=== PATIENT | male | born 1955 | race Caucasian/White ===

== ENCOUNTER 2019-02-03 10:02 | Day surgery (SDC) | payer OTHER ==
[~2019-02-03 10:02] MED LIST: Bupivacaine 0.5%/EPINEPHrine 1:200,000 50 ML MDV ONE; Hydrogen Peroxide 3% Top Soln 240 ML Bottle ONE
[2019-02-03] MEDS ORDERED: Dextrose 5%-Lactated Ringers 1,000 ML IV SCH (10:30)
[2019-02-03] MEDS ORDERED: cefOXitin 2 GM in Sodium Chloride 0.9% 50 ML IV ONE (10:30)
[2019-02-03] MEDS ORDERED: Methylene Blue 50 MG/10 ML Ampule INJECT ONE (11:00)
[2019-02-03] MEDS ORDERED: Propofol 200 MG/20 ML SDV ONE ×2 (11:30→12:35)
[2019-02-03] MEDS ORDERED: Succinylcholine 200 MG/10 ML MDV ONE (11:30)
[2019-02-03] MEDS ORDERED: Dexamethasone 4 MG/ML SDV ONE (11:30)
[2019-02-03] MEDS ORDERED: Neostigmine Methylsulfate 1 MG/ML 5 ML Syringe ONE (11:30)
[2019-02-03] MEDS ORDERED: Glycopyrrolate 0.2 MG/ML 5 ML MDV ONE (11:30)
[2019-02-03] MEDS ORDERED: fentaNYL 250 MCG/5 ML SDV ONE (11:30)
[2019-02-03] MEDS ORDERED: Rocuronium 50 MG/5 ML Vial ONE (11:30)
[2019-02-03] MEDS ORDERED: Ondansetron 4 MG/2 ML SDV ONE (11:30)
[2019-02-03] MEDS ORDERED: Sodium Phosphate,Monobasic/Sodium Phosphate,Dibasic Enema 133 ML Bottle RECTAL ONE (11:34)
[2019-02-03] MEDS ORDERED: Hydrogen Peroxide 3% Top Soln 240 ML Bottle ONE (13:05)
--- NOTE | 2019-02-03 14:57 | OR ---
DATE OF PROCEDURE: 02/03/2019 PREOPERATIVE DIAGNOSIS: [id number]. POSTOPERATIVE DIAGNOSIS: [id number]. PROCEDURE: Anal fistulectomy. SURGEON: Dalton Garcia MD ANESTHESIA: General endotracheal. INDICATION: This 63-year-old white male noted drainage from an opening near his anus in September of this year. It has not improved and continues to drain a thin fluid. He has to wear a pad to collect this fluid. He was referred for evaluation and treatment of a [id number]. He denies a history of a perirectal abscess. On exam, he does have an opening with a drop of fluid on it right at the edge of his anoderm. This would be at the 1 o'clock position with 12 o'clock being posterior. I counseled him for a fistulectomy, including risks and alternatives, and he gave his informed consent to proceed. DESCRIPTION OF PROCEDURE: After adequate general endotracheal anesthesia was obtained, the patient was placed in luke-knife position. His anal and perianal areas were prepped and draped in the usual sterile fashion. Time-out was held. The fistulous opening was cannulated with a catheter and methylene blue with peroxide was injected into the opening. We noted it to come out through one of the crypts in the anus with the anoscope in position. We were then able to pass a lacrimal probe easily between these 2 areas. The overlying skin and subcutaneous tissue were then divided with electrocautery. The fistulous tract was curetted. We did not go into the muscle. All looked well. A sterile dressing was applied. He was placed supine. The anesthesia was reversed. He was extubated and brought to recovery room in good condition. Dalton Garcia MD /[id number]
== END 2019-02-03 15:28 | disposition home or self-care (01) ==
LOC: JP.SDS 10:02
PROVIDERS: ATTEND Surgery
DX: K60.3 Anal fistula (principal); K21.9 Gastro-esophageal reflux disease without esophagitis; I10 Essential (primary) hypertension; I83.93 Asymptomatic varicose veins of bilateral lower extremities; E11.9 Type 2 diabetes mellitus without complications; E78.5 Hyperlipidemia, unspecified; E66.9 Obesity, unspecified; Z88.5 Allergy status to narcotic agent; Z91.013 Allergy to seafood; Z79.51 Long term (current) use of inhaled steroids; Z79.82 Long term (current) use of aspirin; Z79.01 Long term (current) use of anticoagulants; Z79.899 Other long term (current) drug therapy; Z68.41 Body mass index [BMI] 40.0-44.9, adult
CPT/HCPCS: 46270; A9270; J0330; J0694; J1100; J2405; J2704; J3010; J7042; J7050; Q9968; J2710; J3490

== ENCOUNTER 2020-03-03 14:24 | Emergency (ER) | payer MEDICARE, OTHER ==
--- NOTE | 2020-03-03 15:55 | EDM.PDOC ---
ED HPI GENERAL MEDICAL PROBLEM - General Chief Complaint: Cardiovascular Problem Stated Complaint: LOW BP Time Seen by Provider: 03/03/20 15:38 Source of Information: Reports: Patient, Family, RN Notes Reviewed History Limitations: Reports: No Limitations - History of Present Illness INITIAL COMMENTS - FREE TEXT/NARRATIVE: Bari reports complaints of dizziness today and almost passing out while working in his garage. he states he went to stand up and became very dizzy and almost passed out. He checked his blood pressure and noted that his heart rate was 44 BPM with blood pressure of 104/50s. Bari has been working on his diet and weight loss to become healthier. He denies fever, chills, nausea, vomiting, diarrhea or other concerns. - Related Data Allergies Allergy/AdvReac Type Severity Reaction Status Date / Time hydrocodone Allergy Severe Anaphylactic Verified 03/03/20 15:05 Shock niacin Allergy Severe Anaphylactic Verified 03/03/20 15:05 Shock shellfish derived Allergy Itching Verified 03/03/20 15:05 hydromorphone [From Dilaudid] AdvReac Nausea Verified 03/03/20 15:05 oxycodone [From Percocet] AdvReac Nausea and Verified 03/03/20 15:05 Vomiting Home Meds: Home Meds Aspirin [Aspirin EC] 325 mg PO DAILY 01/18/19 [History] Fish Oil/DHA/EPA [Fish Oil 1,200 MG] 1 each PO DAILY 01/18/19 [History] Fluticasone Propionate [Flonase] 2 spray IH DAILY 01/18/19 [History] Lisinopril 40 mg PO DAILY 01/18/19 [History] Loratadine [Claritin] 10 mg PO DAILY 01/18/19 [History] Multivitamin [Daily Multiple Vitamin] 1 each PO DAILY 01/18/19 [History] Omeprazole 40 mg PO DAILY 01/18/19 [History] Spironolactone [Aldactone] 25 mg PO DAILY 01/18/19 [History] Tamsulosin HCl 0.4 mg PO DAILY 01/18/19 [History] amLODIPine Besylate [Amlodipine Besylate] 5 mg PO DAILY 01/18/19 [History] atenoloL [Atenolol] 100 mg PO DAILY 01/18/19 [History] atorvaSTATin Calcium [Atorvastatin Calcium] 40 mg PO DAILY 01/18/19 [History] Famotidine 40 mg PO DAILY 03/03/20 [History] Lifitegrast [Xiidra] 1 drop TOP DAILY 03/03/20 [History] Past Medical History HEENT History: Reports: Allergic Rhinitis, Hard of Hearing, Other (See Below) Other HEENT History: laser surgery to both eyes. dry eyes Cardiovascular History: Reports: Blood Clots/VTE/DVT, High Cholesterol, Hypertension Respiratory History: Reports: Sleep Apnea Gastrointestinal History: Reports: Colon Polyp, GERD Genitourinary History: Reports: None Musculoskeletal History: Reports: Arthritis, Back Pain, Chronic Neurological History: Reports: Migraines Psychiatric History: Reports: Depression Endocrine/Metabolic History: Reports: Diabetes, Type II, Obesity/BMI 30+ - Infectious Disease History Infectious Disease History: Reports: Chicken Pox, Measles, Mumps - Past Surgical History HEENT Surgical History: Reports: Laser Surgery Cardiovascular Surgical History: Reports: None, Vascular Surgery Respiratory Surgical History: Reports: None GI Surgical History: Reports: Colonoscopy, EGD, Hernia, Abdominal Male Surgical History: Reports: Vasectomy Endocrine Surgical History: Reports: None Neurological Surgical History: Reports: None Musculoskeletal Surgical History: Reports: Carpal Tunnel Social & Family History - Tobacco Use Smoking Status *Q: Former Smoker Used Tobacco, but Quit: Yes Month/Year Tobacco Last Used: 35 years ago - Caffeine Use Caffeine Use: Reports: Coffee - Recreational Drug Use Recreational Drug Use: No ED ROS GENERAL - Review of Systems Review Of Systems: See Below Constitutional: Reports: No Symptoms HEENT: Reports: No Symptoms Respiratory: Reports: No Symptoms Cardiovascular: Reports: Blood Pressure Problem (reports low blood pressure), Lightheadedness. Denies: Chest Pain, Claudication, Dyspnea on Exertion, Edema, Orthopnea, Palpitations, PND, Syncope Endocrine: Reports: No Symptoms GI/Abdominal: Reports: No Symptoms : Reports: No Symptoms Musculoskeletal: Reports: No Symptoms Skin: Reports: No Symptoms Neurological: Reports: Dizziness. Denies: Confusion, Headache, Numbness, Paresthesia, Pre-Existing Deficit, Seizure, Syncope, Tingling, Tremors, Trouble Speaking, Difficulty Walking, Weakness, Change in Speech, Gait Disturbance Psychiatric: Reports: No Symptoms Hematologic/Lymphatic: Reports: No Symptoms Immunologic: Reports: No Symptoms ED EXAM, GENERAL - Physical Exam Exam: See Below Exam Limited By: No Limitations General Appearance: Alert, WD/WN, No Apparent Distress Eye Exam: Bilateral Eye: EOMI, Normal Inspection, PERRL Ears: Normal External Exam, Normal Canal, Hearing Grossly Normal, Normal TMs Throat/Mouth: Normal Inspection, Normal Lips, Normal Teeth, Normal Gums, Normal Oropharynx, Normal Voice, No Airway Compromise Head: Atraumatic, Normocephalic Neck: Normal Inspection, Supple, Non-Tender, Full Range of Motion Respiratory/Chest: No Respiratory Distress, Lungs Clear, Normal Breath Sounds, No Accessory Muscle Use, Chest Non-Tender. No: Crackles, Rales, Rhonchi, Wheezing Cardiovascular: Normal Peripheral Pulses, Regular Rate, Rhythm, No Edema, No Gallop, No Murmur, No Rub Peripheral Pulses: 2+: Radial (L), Radial (R), Dorsalis Pedis (L), Dorsalis Pedis (R) Back Exam: Normal Inspection, Full Range of Motion. No: CVA Tenderness (R), CVA Tenderness (L) Extremities: Normal Inspection, Normal Range of Motion, Non-Tender, No Pedal Edema, Normal Capillary Refill Neurological: Alert, Oriented, CN II-XII Intact, Normal Cognition, Normal Gait, No Motor/Sensory Deficits Psychiatric: Normal Affect, Normal Mood Skin Exam: Warm, Dry, Intact, Normal Color, No Rash Lymphatic: No Adenopathy EKG INTERPRETATION EKG Date: 03/03/20 Time: 16:18 Rhythm: NSR Rate (Beats/Min): 53 [place]: Normal P-Wave: Present QRS: Normal ST-T: Normal QT: Normal Comparison: NA - No Prior EKG EKG Interpretation Comments: No ectopy or ST changes Course - Vital Signs Last Recorded V/S: Last Vital Signs Temp 35.8 C L 03/03/20 15:03 Pulse 50 L 03/03/20 17:07 Resp 16 03/03/20 15:17 BP 125/44 L 03/03/20 17:07 Pulse Ox 97 03/03/20 15:17 - Orders/Labs/Meds Orders: Active Orders 24 hr Category Date Time Status EKG 12 Lead [EK] Routine Ther 03/03/20 14:38 Ordered Labs from clinic on 12/16/2019: Sodium 136 Potassium 4.8 Creat 1.42 GFR 50 CBC, BMP pending. Labs: Laboratory Tests 03/03/20 03/03/20 Range/Units 15:52 15:52 WBC 6.0 (4.5-11.0) K/uL RBC 4.05 L (4.30-5.90) M/uL Hgb 12.7 (12.0-15.0) g/dL Hct 39.2 L (40.0-54.0) % MCV 97 (80-98) fL MCH 31 (27-31) pg MCHC 32 (32-36) % Plt Count 145 L (150-400) K/uL Neut % (Auto) 67 H (36-66) % Lymph % (Auto) 23 L (24-44) % Bullock % (Auto) 7 H (2-6) % Eos % (Auto) 3 (2-4) % Baso % (Auto) 0 (0-1) % Sodium 140 (140-148) mmol/L Potassium 4.9 (3.6-5.2) mmol/L Chloride 106 (100-108) mmol/L Carbon Dioxide 30 (21-32) mmol/L Anion Gap 4.1 L (5.0-14.0) mmol/L BUN 25 H (7-18) mg/dL Creatinine 1.3 (0.8-1.3) mg/dL Est Cr Clr Drug Dosing 56.65 mL/min Estimated GFR (MDRD) 55 L (>60) Glucose 139 H (74-106) mg/dL Calcium 9.7 (8.5-10.1) mg/dL Patient lab work reviewed with him and his . All his questions were answered. He will decrease lisinopril to 20mg PO daily from his current 40mg daily. He will work on increased water intake to 100oz daily. Follow up with primary in 3 to 7 days for recheck. Patient in agreement with plan. Departure - Departure Time of Disposition: 16:52 Disposition: Home, Self-Care 01 Condition: Good Clinical Impression: Hypotensive episode, Near syncope Instructions: Hypotension, [id number], Near-Syncope, [id number] Referrals: Ami Freeman MD [Primary Care Provider] - Forms: ED Department Discharge Additional Instructions: You have been evaluated and treated for a hypotensive and near syncopal episode. Vital signs stable in the emergency room. Decrease lisinopril 40mg to lisinopril 20mg once daily. Work on drinking plenty of water daily to stay hydrated. Follow up with primary provider in 3 to 7 days for a recheck. Return to the emergency room for any worsening, issues or concerns. Sepsis Event Note (ED) - Evaluation Sepsis Screening Result: No Definite Risk - Focused Exam Vital Signs: Vital Signs Temp Pulse Resp BP Pulse Ox 03/03/20 17:07 50 L 125/44 L 03/03/20 15:17 55 L 16 129/55 L 97 03/03/20 15:03 35.8 C L 54 L 16 154/56 H 100 03/03/20 14:38 35.8 C L 54 L 16 154/56 H 100 - My Orders Last 24 Hours: My Active Orders 03/03/20 14:38 EKG 12 Lead [EK] Routine - Assessment/Plan Last 24 Hours: My Active Orders 03/03/20 14:38 EKG 12 Lead [EK] Routine Assessment:: Hypotensive episode, Near syncope Plan: Patient evaluated and treated for a hypotensive and near syncopal episode. Vital signs stable in the emergency room. Decrease lisinopril 40mg to lisinopril 20mg once daily. Work on drinking plenty of water daily to stay hydrated. Follow up with primary provider in 3 to 7 days for a recheck. Return to the emergency room for any worsening, issues or concerns.
== END 2020-03-03 17:12 | disposition home or self-care (01) ==
LOC: JP.ED 14:24
DX: I95.9 Hypotension, unspecified (principal); R55 Syncope and collapse; I10 Essential (primary) hypertension; E78.00 Pure hypercholesterolemia, unspecified; E11.9 Type 2 diabetes mellitus without complications; E66.9 Obesity, unspecified; K21.9 Gastro-esophageal reflux disease without esophagitis; Z88.5 Allergy status to narcotic agent; Z91.013 Allergy to seafood; Z88.8 Allergy status to other drugs, medicaments and biological substances; Z79.82 Long term (current) use of aspirin; Z79.899 Other long term (current) drug therapy
CPT/HCPCS: 36415; 80048; 85025; 93005; 93010; 99284-25

== ENCOUNTER 2021-02-26 07:38 | Day surgery (SDC) | payer MEDICARE ==
[~2021-02-26 07:38] MED LIST changes: -Bupivacaine 0.5%/EPINEPHrine 1:200,000 50 ML MDV ONE; -Hydrogen Peroxide 3% Top Soln 240 ML Bottle ONE; +Lidocaine 1% with EPINEPHrine 1:100,000 50 ML MDV ONE; +Midazolam 1 MG/ML 2 ML SDV ONE; +Propofol 200 MG/20 ML SDV ONE; +Sodium Chloride 0.9% 10 ML ONE; +Sodium Tetradecyl Sulfate 1% 20 MG/2 ML SDV ONE; +fentaNYL 100 MCG/2 ML SDV ONE
[2021-02-26] MEDS ORDERED: Sodium Chloride 0.9% 1,000 ML IV SCH (08:00)
[2021-02-26] MEDS ORDERED: Lidocaine 1% w/EPINEPHrine 50 ML, Sodium Bicarbonate 5 MEQ in Sodium Chloride 0.9% 950 ML INJECT ONE ×2 (08:40→09:00)
[2021-02-26] MEDS ORDERED: Propofol 200 MG/20 ML SDV ONE (09:15)
--- NOTE | 2021-02-27 09:06 | OR ---
DATE OF PROCEDURE: 02/26/2021 SURGEON: Edwin Berry MD PROCEDURES PERFORMED: 1. Radiofrequency ablation of the left greater saphenous vein. 2. Radiofrequency ablation of right greater saphenous vein. 3. Sclerotherapy, left leg, multiple. 4. Sclerotherapy, right leg, multiple. 5. Compression wrap, left leg ([id number]). 6. Compression wrap, right leg ([id number]). COMPLICATIONS: None. ANODIZING LINE OPERATOR: None. PREOPERATIVE DIAGNOSIS: Venous insufficiency with inflammation and pain. POSTOPERATIVE DIAGNOSIS: Venous insufficiency with inflammation and pain. RISKS: Risks, benefits, alternatives, and limitations including, but not limited to infection, bleeding, DVT formation, chronic wounds, chronic pain, numbness, and other risks not listed here were explained to the patient, and he wished to proceed. PROCEDURE IN DETAIL: The patient was placed in supine position. The left greater saphenous vein was identified, noted to have some tortuosity with this. Attempts were made to access this near the ankle; however, this had to be moved more proximally, and only the below-the- knee aspect could be addressed today with the radiofrequency ablation due to the aforementioned tortuosity. This was anesthetized with 1% lidocaine. Needle was introduced, 21-gauge needle and then followed by a 0.035 wire. RFA probe was advanced to about the level of the knee. Tumescent fluid was injected in a 1 cm jacket around this, verified a second and a third time. Direct even pressure was performed as the probe was deployed. The sheath and device were then removed. Direct pressure was held for 10 minutes. The right leg was then performed from the ankle to 3 cm from the saphenofemoral junction using the same manner, same fashion, same technique, in the same sequence, using the same equipment. Sclerotherapy was then performed on the left and right legs using 0.33% sodium tetradactyl. This was drawn back to ensure intravascular injection only. No more than 2 mL injected in one location, 5 on the right, and 5 on the left. A 2-layer 2-stage compression wrap was then performed in a distal to proximal gradient. These were both in [id number] and was performed bilaterally. The patient tolerated the procedure well. Edwin Berry MD /[id number]
== END 2021-02-26 11:15 | disposition home or self-care (01) ==
LOC: JP.SDS 07:38
PROVIDERS: ATTEND Surgery
DX: I87.2 Venous insufficiency (chronic) (peripheral) (principal); I80.03 Phlebitis and thrombophlebitis of superficial vessels of lower extremities, bilateral; K21.9 Gastro-esophageal reflux disease without esophagitis; I12.9 Hypertensive chronic kidney disease with stage 1 through stage 4 chronic kidney disease, or unspecified chronic kidney disease; E11.22 Type 2 diabetes mellitus with diabetic chronic kidney disease; N18.9 Chronic kidney disease, unspecified; E66.9 Obesity, unspecified
CPT/HCPCS: 36471; 36475; J1642; J2250; J2704; J3010; J7030; J3490

== ENCOUNTER 2021-10-01 07:27 | Day surgery (SDC) | payer MEDICARE ==
[~2021-10-01 07:27] MED LIST changes: -Lidocaine 1% with EPINEPHrine 1:100,000 50 ML MDV ONE; -Sodium Chloride 0.9% 10 ML ONE; -Sodium Tetradecyl Sulfate 1% 20 MG/2 ML SDV ONE
[2021-10-01] MEDS ORDERED: Dextrose 5%-Lactated Ringers 1,000 ML IV SCH (08:15)
[2021-10-03 09:13] LABS: H. PYLORI BREATH TEST Negative (Negative)
== END 2021-10-01 11:31 | disposition home or self-care (01) ==
LOC: JP.SDS 07:27 → MERGE 09:45 → JP.SDS 11:31
PROVIDERS: ATTEND Surgery
DX: K21.00 Gastro-esophageal reflux disease with esophagitis, without bleeding (principal); K29.80 Duodenitis without bleeding; K44.9 Diaphragmatic hernia without obstruction or gangrene; I10 Essential (primary) hypertension; E11.9 Type 2 diabetes mellitus without complications; Z79.899 Other long term (current) drug therapy
CPT/HCPCS: 83013; 87081; 88305; J2250; J2704; J3010; J7121

== ENCOUNTER 2022-09-17 08:26 | Day surgery (SDC) | payer MEDICARE ==
[2022-09-17] MEDS ORDERED: Acetaminophen 500 MG Tab PO ONE (08:30)
[2022-09-17] MEDS ORDERED: Dextrose 5%-Lactated Ringers 1,000 ML IV SCH (08:45)
[2022-09-17] MEDS ORDERED: ceFAZolin 2 GM in Premix Bag 1 BAG IV ONE (09:15)
[2022-09-17] MEDS ORDERED: Bupivacaine 0.5% 50 ML MDV ONE (10:05)
[2022-09-17] MEDS ORDERED: Bacitracin Oint 1 GM U/D Packet ONE (10:06)
[2022-09-17] MEDS ORDERED: Propofol 200 MG/20 ML SDV ONE (10:11)
[2022-09-17] MEDS ORDERED: Lidocaine 1% 20 ML MDV ONE (10:15)
[2022-09-17] MEDS ORDERED: Lidocaine 1% with EPINEPHrine 1:100,000 50 ML MDV ONE (10:15)
[2022-09-17] MEDS ORDERED: Lidocaine 0.5% 50 ML SDV ONE (10:17)
== END 2022-09-17 12:45 | disposition home or self-care (01) ==
LOC: JP.SDS 08:26
PROVIDERS: ATTEND Surgery
DX: L98.0 Pyogenic granuloma (principal); L98.499 Non-pressure chronic ulcer of skin of other sites with unspecified severity; I25.10 Atherosclerotic heart disease of native coronary artery without angina pectoris; I10 Essential (primary) hypertension; K21.9 Gastro-esophageal reflux disease without esophagitis; E11.9 Type 2 diabetes mellitus without complications
CPT/HCPCS: 11423; 12041; A9270; J2250; J2704; J3010; J3490; J7121